=== PATIENT | male | born 1975 | race Two or more races ===

== ENCOUNTER 2020-02-25 13:06 | Emergency (ER) | payer MEDICAID, OTHER ==
[~2020-02-25] VITALS: Ht 167.6 cm; Wt 70.3 kg
[2020-02-25 16:02] VITALS: BP 118/72
== END 2020-02-25 16:39 | disposition home or self-care (01) ==
LOC: ER 13:06
DX: R07.81 Pleurodynia (principal)
CPT/HCPCS: 71101